=== PATIENT | male | born 1950 | race Caucasian/White ===

== ENCOUNTER 2016-12-03 07:12 | Inpatient (IN) | payer OTHER, BC ==
[2016-11-19 08:13] VITALS: BMI 32.0
--- NOTE | 2016-11-19 08:53 | PAT Medication Instructions ---
Service Date Nov 19, 2016. Current Home Medication List Atorvastatin (Lipitor), 10 MG PO QAM Budesonide/Formoterol Fumarate (Symbicort 160/4.5 Inhaler ), 2 PUFFS INH BID Cholecalciferol (Vitamin D3), 1 TAB PO QAM Cholestyramine (Cholestyramine Light), 1 PKT PO QAM Glucosamine Sulfate (Glucosamine), 1,000 MG PO QAM Losartan Potassium (Cozaar), 100 MG PO QAM Multivitamin (Multivitamin), 1 TAB PO QAM Omeprazole (Prilosec), 20 MG PO QAM Medication Instructions For Your Scheduled Surgery - Hold the following medications 2 weeks prior to surgery: Glucosamine Sulfate (Glucosamine), 1,000 MG PO QAM - Hold the following medications the morning of surgery: Multivitamin (Multivitamin), 1 TAB PO QAM Cholecalciferol (Vitamin D3), 1 TAB PO QAM Losartan Potassium (Cozaar), 100 MG PO QAM Cholestyramine (Cholestyramine Light), 1 PKT PO QAM - Take the following medications the morning of surgery with a sip of water OTHERWISE NOTHING TO EAT OR DRINK AFTER MIDNIGHT: Budesonide/Formoterol Fumarate (Symbicort 160/4.5 Inhaler ), 2 PUFFS INH BID Atorvastatin (Lipitor), 10 MG PO QAM Omeprazole (Prilosec), 20 MG PO QAM - Take the following medications as scheduled the night before surgery: Budesonide/Formoterol Fumarate (Symbicort 160/4.5 Inhaler ), 2 PUFFS INH BID If you have any questions please call us at [phone] (Diana Hawkins PA-C ) or [phone] or [phone]
--- NOTE | 2016-11-19 09:24 | DIAGNOSTIC IMAGING REPORT ---
CHEST PREADMISSION(PA/LAT) HISTORY: Preop. COMPARISON: None. FINDINGS: The lungs are clear. Cardiac silhouette is normal in size. No pleural effusions. No pneumothorax. Small nodular density within the left lateral lung base is consistent with a nipple shadow. IMPRESSION: No acute process. Electronically signed by: Grady Cortez M.D. 11/19/2016 9:22 AM Dictated Date/Time: 11/19/2016 9:15 AM
[2016-11-19 09:44] LABS: BASO % 0.9 %; BASO ABS # 0.08 K/uL (0-0.2); COMPLETE YES; EOS % 0.7 %; HEMATOCRIT 46.5 % (42-52); IG% 0.2 %; LYMPH % 16.4 %; LYMPH ABS # 1.44 K/uL (1.2-3.4); MEAN CELL VOLUME 94.1 fL (80-100); MEAN CORPUSCULAR HEMOGLOBIN 32.8 pg (25-34); MEAN CORPUSCULAR HGB CONC 34.8 g/dl (32-36); MEAN PLATELET VOLUME 10.2 fL (7.4-10.4); MONO % 8.1 %; NEUT % 73.7 %; PLATELET COUNT 283 K/uL (130-400); RED BLOOD COUNT 4.94 M/uL (4.7-6.1); WHITE BLOOD COUNT 8.76 K/uL (4.8-10.8)
[2016-11-19 09:57] LABS: URINE APPEARANCE CLEAR (CLEAR); URINE BILIRUBIN NEG (NEG); URINE COLOR YELLOW; URINE NITRITE NEG (NEG); URINE PH 5.5 (4.5-7.5); URINE SPECIFIC GRAVITY 1.018 (1.000-1.030); UROBILINOGEN NEG (NEG)
[2016-11-19 10:03] LABS: MANUAL MICROSCOPIC REQUIRED? NO; REVIEW REQ? NO
[2016-11-19 11:11] LABS: CALCIUM 9.3 mg/dl (8.5-10.1); CREATININE 1.1 mg/dl (0.60-1.40); POTASSIUM 4.4 mmol/L (3.5-5.1)
--- NOTE | 2016-12-01 12:30 | HISTORY & PHYSICAL EXAMINATION ---
DATE OF ADMISSION: 12/03/2016 HISTORY OF PRESENT ILLNESS: The patient presents to our office with complaint of back and bilateral leg pain. He was referred to pain management, but does not believe the injections would help. He is not having weakness, paresthesias, numbness. He feels his leg is fatigued and tired. Denies bowel or bladder dysfunction. PAST MEDICAL HISTORY: Significant for GERD, hypertension. PAST SURGICAL HISTORY: Significant for left total hip replacement, kidney stones, right shoulder arthroscopy, left shoulder arthroscopy. ALLERGIES: MORPHINE. MEDICATIONS: Include Losartan 50 mg daily, Crestor 5 mg daily, Prilosec 20 mg daily, glucosamine sulfate 1000 mg daily, vitamin D3 1000 international units daily, multivitamin and cholestyramine 4 grams. SOCIAL HISTORY: Works as a gear cutting machine set up operator. Occasional tobacco user. Alcohol none. REVIEW OF SYSTEMS: Significant for back and leg pain. FAMILY HISTORY: Noncontributory. PHYSICAL EXAMINATION: HEENT: Speech appropriate. CARDIOPULMONARY: No gross abnormalities. ABDOMEN: Soft, nontender. GENITOURINARY: Deferred. NEUROLOGIC: Cranial nerves II through XII grossly intact. MUSCULOSKELETAL: Moves easily around the room. Strength is intact about extremities. No focal atrophy. Gait is stable. ASSESSMENT: Grade 2 spondylolisthesis of L4 on L5, spinal stenosis L4-L5. PLAN: At this point in time, wants to pursue surgical intervention. Surgery would require lumbar decompression with instrumented fusion of L4-L5. Risks, benefits, pros, cons, and alternatives were outlined in detail. The patient would like to proceed with above-mentioned surgical planning.
[~2016-12-03] VITALS: Ht 177.8 cm; Wt 100.9 kg
[2016-12-03] VITALS (9 sets, daily range): BP systolic 110–161; BP diastolic 60–92; PULSE 66–79; TEMP 36.7–37.1; O2SAT 95–98; Ht 177.8 cm; Wt 100.9 kg
[~2016-12-03 07:12] MED LIST: ATOR10TA88 PO; CEFAZOLIN 2000 MG/60 ML D5W IV SCH; CHOL1000 PO; GLUC10007 PO; LACTATED RINGER'S 1000ML 1,000 ML IV SCH; LOSA1TAB38 PO; MULT-506 PO; PRLSR20 PO; QSTP PO; SYMIN160 INH
--- NOTE | 2016-12-03 07:28 | History & Physical Bridge Note ---
H&P Re-Evaluation Bridge Note: I have examined the patient, reviewed the History & Physical and in the interval since the performance of the History & Physical I have noted the following changes of clinical significance: No changes noted
[2016-12-03] MEDS ORDERED: albuterol inhaler INH (07:47)
[2016-12-03] MEDS ORDERED: FENTANYL CITRATE INJ 50 MCG/1 ML 2 ML VIAL ONE ×2 (09:42→11:19)
[2016-12-03] MEDS ORDERED: ONDANSETRON INJ 2 MG/ML 2 ML VIAL ONE (09:42)
[2016-12-03] MEDS ORDERED: PROPOFOL IV EMULSION 10 MG/ML 20 ML VIAL IV ONE (09:42)
[2016-12-03] MEDS ORDERED: LIDOCAINE HCL 2% 2 ML VIAL (20MG/ML) ONE (09:42)
[2016-12-03] MEDS ORDERED: MIDAZOLAM HCL 1 MG/ML 2ML VIAL ONE (09:42)
[2016-12-03] MEDS ORDERED: NEOSTIGMINE METHYLSULFATE 5 MG/5 ML SYR ONE ×2 (09:42→10:58)
[2016-12-03] MEDS ORDERED: GLYCOPYRROLATE INJ 0.2 MG/ML VIAL ONE ×2 (09:42→10:58)
[2016-12-03] MEDS ORDERED: DEXAMETHASONE SOD INJ 4 MG/ML VIAL ONE (09:42)
[2016-12-03] MEDS ORDERED: ROCURONIUM BROMIDE 10 MG/ML 5 ML VIAL ONE ×2 (09:42→10:32)
[2016-12-03] MEDS ORDERED: ONDANSETRON INJ 2 MG/ML 2 ML VIAL IV PRN ×2 (09:45→11:45)
[2016-12-03] MEDS ORDERED: ATROPINE SULFATE 0.1 MG/ML 5ML SYR IV PRN (09:45)
[2016-12-03] MEDS ORDERED: HYDROmorphone INJ 1 MG/ML SYR IV PRN ×2 (09:45→11:45)
[2016-12-03] MEDS ORDERED: EpHEDrine SULFATE INJ 50 MG/ML AMP IV PRN (09:45)
[2016-12-03] MEDS ORDERED: FENTANYL CITRATE INJ 50 MCG/1 ML 2 ML VIAL IV PRN (09:45)
[2016-12-03] MEDS ORDERED: HYDROmorphone INJ 2 MG/ML SYR/VIAL ONE (10:12)
[2016-12-03] MEDS ORDERED: THROMBIN 20,000 UNITS (RECOMBINANT) TOP ONE (10:54)
[2016-12-03] MEDS ORDERED: BACITRACIN 50000 UNIT VIAL IR ONE (11:30)
[2016-12-03] MEDS ORDERED: BUPIVACAINE/EPINEPHRINE 0.5% MPF 1:200,000 30 ML VIAL INJ ONE (11:30)
[2016-12-03] MEDS ORDERED: FLOSEAL HEMOSTATIC MATRIX 10ML TOP ONE (11:30)
[2016-12-03] MEDS ORDERED: SODIUM CHLORIDE 0.9% 1000ML 1,000 ML IV SCH (11:37)
--- NOTE | 2016-12-03 11:37 | [facility] Post Operative Brief Note ---
Immediate Operative Summary Operative Date Dec 03, 2016. Pre-Operative Diagnosis Grade 2 spondylolisthesis of L4 on L5, spinal stenosis L4-L5 Post-Operative Diagnosis Grade 2 spondylolisthesis of L4 on L5, spinal stenosis L4-L5 Procedure(s) Performed L4-L5 Lumbar Laminectomy, Decompression, Pedicle Screw Fixation, Placement of Interbody Device, L4-5 Posterolateral Fusion Application of Micheline, Bone Morphogenetic Protein Surgeon Dr. Kevan Rodrigues Continuous Yarn Dyeing Machine Operator Surgeon(s) Rani Hui PA-C Estimated Blood Loss 120mL Findings stenosis Specimens none per surgeon
[2016-12-03] MEDS ORDERED: METOCLOPRAMIDE HCL INJ 5 MG/ML 2 ML VIAL IV PRN (11:45)
[2016-12-03] MEDS ORDERED: LORAZEPAM 0.5 MG TAB PO PRN (11:45)
[2016-12-03] MEDS ORDERED: SOD PHOSPHATE/SOD BIPHOSPHATE ENEMA 132 ML BTL PR PRN (11:45)
[2016-12-03] MEDS ORDERED: ALUMINUM/MAGNESIUM SUSP 30 ML UDC PO PRN (11:45)
[2016-12-03] MEDS ORDERED: ACETAMINOPHEN IV 100 ML IV PRN (11:45)
[2016-12-03] MEDS ORDERED: DO NOT ADMINISTER FLU VACCINE PRN ×3 (11:45)
[2016-12-03] MEDS ORDERED: NALOXONE HCL 0.4 MG/1 ML VIAL/CARP IV PRN ×2 (11:45)
[2016-12-03] MEDS ORDERED: ACETAMINOPHEN 500 MG TAB PO PRN (11:45)
[2016-12-03] MEDS ORDERED: DO NOT ADMINISTER PNEUMOCOCCAL VACCINE PRN ×2 (11:45)
[2016-12-03] MEDS ORDERED: hydrOXYzine HCL 25 MG TAB PO PRN (11:45)
[2016-12-03] MEDS ORDERED: MAGNESIUM HYDROXIDE SUSP 30 ML UDC PO PRN (11:45)
[2016-12-03] MEDS ORDERED: FAMOTIDINE 20 MG TAB PO PRN (11:45)
[2016-12-03] MEDS ORDERED: LORAZEPAM INJ 0.5 MG in SYRINGE 0 ML IV PRN (11:45)
[2016-12-03] MEDS ORDERED: BISACODYL 10 MG SUPP PR PRN (11:45)
[2016-12-03] MEDS ORDERED: PROMETHAZINE HCL INJ 12.5 MG in SODIUM CHLORIDE 0.9% 50ML 50 ML IV PRN (11:45)
--- NOTE | 2016-12-03 11:45 | DIAGNOSTIC IMAGING REPORT ---
LUMBAR SPINE, INTRAOPERATIVE FLUOROSCOPY HISTORY: L4-5 decompression and fusion. FLUOROSCOPY TIME: 13 seconds. FINDINGS: Intraoperative fluoroscopy was provided for the lumbar spine. 2 fluoroscopic spot images were obtained. Posterior decompression and fusion at L4-L5 with pedicle screws and rods. The hardware appears intact. IMPRESSION: Fluoroscopy provided for a L4-L5 posterior decompression and fusion. Electronically signed by: Grady Cortez M.D. 12/03/2016 11:44 AM Dictated Date/Time: 12/03/2016 11:43 AM
--- NOTE | 2016-12-03 12:12 | OPERATIVE REPORT ---
DATE OF OPERATION: 12/03/2016 PREOPERATIVE DIAGNOSES: Spinal stenosis, spondylolisthesis. POSTOPERATIVE DIAGNOSIS: Same. PROCEDURE PERFORMED: 1. Lumbar decompression, medial facetectomy, and foraminotomy L3-L4, L4-L5. 2. Posterior spinal fusion L4-5. 3. Placement of posterior instrumentation using Orthros rods and screws L4-L5. 4. Interbody fusion L4-L5. 5. Placement of PEEK cage 7 x 22 mm at L4-L5. 6. Placement of locally harvested morcellized autograft in posterior gutters. 7. Placement of Infuse collagen sponge combined with Mastergraft in the posterior gutters and Micheline bone grafting in interbody space. SURGEON: Dr. Kevan Rodrigues. TRANSFORMER MOLDER: Rani Murphy PA-C. ANESTHESIA: General. DISPOSITION: The patient awakened and taken to PACU in stable condition. HISTORY OF PATIENT'S PROBLEMS: This is a 66-year-old male that presents with the above-mentioned diagnosis. After failing an extensive course of nonoperative care, elected to undergo the above-mentioned procedure. Risks, benefits, pros, cons, and alternatives were outlined in detail preoperatively. PROCEDURE: The patient was met preoperatively, case discussed and all questions were addressed. At that point the patient was taken back to operative suite and after undergoing successful general endotracheal intubation via department of anesthesia, was placed in prone position on Scooby table atop Raphael frame. All bony prominences were padded and the eyes were inspected to ensure there was no external pressure placed upon them. At this point, the lumbar spine was prepped and draped in normal sterile fashion. Sharp dissection with the assistance of Bovie cautery was performed down to and exposing the lamina and transverse processes of 4-5. From a caudal to cephalad fashion, complete laminectomy of L4 and partial laminectomy of L3 was performed addressing severe lateral recess and foraminal stenosis, particularly on the right. Obvious pars defects appreciated. Pedicle screws were then placed in 4-5 bilaterally with assistance of fluoroscopy and appropriate size carlos provisionally placed. Through a transforaminal approach on the right, a complete discectomy of L3-L4 was performed, endplates curetted to subcortical bleeding bone and an 11 x 22 mm PEEK cage filled with Micheline bone grafting tapped into position. The rods were then locked into final position bilaterally and transverse processes of 4-5 burred to subcortical bleeding bone. Infuse collagen sponge combined with Mastergraft and locally harvested morselized autograft was placed in the posterior gutters. A 7 flat FLYNN drain was inserted. Incision was closed with 1-0 Vicryl in the fascia, 2-0 Vicryl subcutaneously, 4-0 Monocryl for final skin closure. Steri-Strips and sterile dressing placed. The patient was awakened and taken to PACU in stable condition. Due to the complex nature of the procedure, the entire surgery was performed with the operational assistance of CARMEN Lorenzo. The food and nutrition services assistant, under direct supervision, was involved in the actual performance of all aspects of the surgical procedure including hemostasis, tissue retraction and incision, instrument management, patient positioning, and wound closure. I attest to the content of the Intraoperative Record and any orders documented therein. Any exceptio ns are noted below.
[2016-12-03] MEDS: HYDROmorphone HCL 0.5MG/ML 50 ML CASSETTE IV PRN ×3 (13:37→22:58)
--- NOTE | 2016-12-03 14:10 | Anesthesiology Progress Note ---
Anesthesia Post Op Note Date & Time Dec 03, 2016 at 14:10 Vital Signs Pain Intensity: 3.0 Vital Signs Past 12 Hours Date Time Temp Pulse Resp B/P Pulse Ox O2 Delivery O2 Flow Rate FiO2 12/03/16 13:43 Nasal Cannula 4.0 12/03/16 13:35 37.1 72 16 133/77 98 Nasal Cannula 4.0 12/03/16 13:15 72 14 142/66 95 Nasal Cannula 4 12/03/16 13:00 69 14 135/62 96 Nasal Cannula 4 12/03/16 12:45 71 14 123/58 93 Nasal Cannula 4 12/03/16 12:35 70 14 136/57 93 Nasal Cannula 4 12/03/16 12:25 36.7 70 14 122/59 96 Nasal Cannula 4 12/03/16 12:15 75 14 142/72 97 Nasal Cannula 4 12/03/16 12:05 76 14 161/83 98 Mask 10 12/03/16 11:55 82 14 132/76 95 Mask 10 12/03/16 11:49 36.4 82 14 128/63 94 Mask 15 12/03/16 07:40 79 20 161/92 97 Room Air Notes Mental Status: alert / awake / arousable, participated in evaluation Pt Amnestic to Procedure: Yes Nausea / Vomiting: adequately controlled Pain: adequately controlled Airway Patency, RR, SpO2: stable & adequate BP & HR: stable & adequate Hydration State: stable & adequate Anesthetic Complications: no major complications apparent
[2016-12-03] MEDS: LACTATED RINGER'S 1000ML 1,000 ML IV SCH ×2 (14:36→19:33)
[2016-12-03] MEDS: DEXAMETHASONE INJ 6 MG in SYRINGE 0 ML IV SCH (19:03)
[2016-12-03] MEDS: CEFAZOLIN IV 2,000 MG in DEXTROSE 5% 50ML 50 ML IV SCH (19:03)
[2016-12-03] MEDS: BUDESONIDE/FORMOTEROL FUMARATE 160/4.5 60 PUFFS/INHALER INH SCH (21:16)
[2016-12-03] MEDS: DOCUSATE SODIUM/SENNA 50/8.6MG TAB PO SCH (21:18)
[2016-12-04] VITALS (7 sets, daily range): BP systolic 117–167; BP diastolic 64–81; PULSE 63–77; TEMP 36.7–37.1; O2SAT 92–97
[2016-12-04] MEDS: LACTATED RINGER'S 1000ML 1,000 ML IV SCH (01:19)
[2016-12-04] MEDS: CEFAZOLIN IV 2,000 MG in DEXTROSE 5% 50ML 50 ML IV SCH (01:51)
[2016-12-04] MEDS: DEXAMETHASONE INJ 6 MG in SYRINGE 0 ML IV SCH ×2 (01:51→10:18)
[2016-12-04] MEDS ORDERED: DC PCA ONE (06:00)
[2016-12-04] MEDS ORDERED: OXYCODONE HCL IR 5 MG TAB (IMMEDIATE RELEASE) PO PRN (06:00)
[2016-12-04 06:57] LABS: BASO ABS # 0.01 K/uL (0-0.2); COMPLETE YES; IG% 0.3 %; LYMPH % 4.8 %; LYMPH ABS # 1.03 K/uL (1.2-3.4); MEAN CELL VOLUME 93.1 fL (80-100); MEAN CORPUSCULAR HEMOGLOBIN 31.5 pg (25-34); MEAN CORPUSCULAR HGB CONC 33.8 g/dl (32-36); NEUT % 89.9 %; PLATELET COUNT 247 K/uL (130-400); RED BLOOD COUNT 4.51 M/uL (4.7-6.1); WHITE BLOOD COUNT 21.47 K/uL (4.8-10.8)
[2016-12-04 07:30] LABS: BUN/CREATININE RATIO 15.5 (10-20); CALCIUM 8.7 mg/dl (8.5-10.1); CREATININE 1.1 mg/dl (0.60-1.40); POTASSIUM 4.3 mmol/L (3.5-5.1)
[2016-12-04] MEDS ORDERED: RXC5 PO (08:20)
--- NOTE | 2016-12-04 08:23 | Discharge Instructions ---
Discharge Instructions Admission Reason for Admission: Lumbar Spinal Stenosis Discharge Discharge Diagnosis / Problem: stenosis Discharge Goals Goal(s): Improve function Activity Recommendations Activity Limitations: per Instructions/Follow-up section . Instructions / Follow-Up Instructions / Follow-Up ACTIVITY RECOMMENDATIONS: SELF CARE INSTRUCTIONS AFTER THORACIC/LUMBAR FUSIONS 1. You may walk to your tolerance. It is good exercise for your legs and back. Expect some back and intermittent leg aches and pains. 2. You may perform "counter-top" level activities (make a sandwich, lizeth with a project, etc.). 3. No bending or lifting of more than 10 pounds or back twisting of any nature (roll like a log when turning in bed). 4. You may ride in a car for 20-30 minutes at a time. No driving until after your first visit with your doctor. 5. Frequent changes of position and restricting sitting to 30 minutes at a time will help limit the amount of back spasms and stiffness you may experience. 6. You may discontinue the use of ambulatory aids (cane, crutches, etc.) once your strength and confidence allow. 7. You may spring intern the shower and let water strike your incision when you arrive home at least once daily. Do not take a tub bath, sit in a hot tub or go into a swimming pool until after your first recheck in the office. SPECIAL CARE INSTRUCTIONS: VERY IMPORTANT TO READ AND REVIEW A. Your surgical incision has been closed with a cosmetic suture under the skin that will dissolve in about 6 weeks. In 14 days, you can use a pair of clean scissors and cut the suture that is left outside of the skin at the ends of your incision. 1. The small skin tapes can be removed 7 days after surgery if they have not fallen off by that point. 2. You may keep the wound open to air as much as possible to promote healing after post-op day number 5 unless told otherwise by your doctor. 3. If you think the wound looks like it is becoming infected (redness or worsening drainage) and/or you are experiencing fever, chill or worsening back pain and muscle spasms, contact the office so that we may evaluate you as soon as possible. B. Complications are uncommon, but please contact us if you have any signs or symptoms of: 1. wound infection (fever higher than 102.5 degrees F, redness, separation of wound, drainage, or increasing pain from the incision) 2. blood clots in legs (pain, swelling, redness and warmth in legs) 3. urinary tract infection (fever higher than 102.5 degrees F, burning upon urination or increased frequency of urination) 4. nerve problems (inability to walk on your toes or heels, numbness, loss of bowel or bladder control) 5. any other symptoms that concern you C. Please call the office at if you have any concerns or questions about your operation or recovery. D. No smoking! Smoking drastically decreases the chance of a solid fusion. E. Do not take any anti-inflammatory medications (Indocin, Advil, Motrin, Aspirin, Naprosyn, etc.) as these may inhibit the chance of a solid fusion. Tylenol is okay to take for pain. MANAGING PAIN AFTER SPINAL SURGERY 1. Narcotic medication is intended for short-term use and will be provided for surgical pain. Surgical pain usually lasts for a period of 4-6 weeks. Narcotic medication includes Percocet, Vicodin, Darvocet, Tylenol #3 or Lortab. 2. Longer-term pain is more appropriately treated with non-narcotic medication such as Tylenol ES. 3. Muscle spasm is not appropriately treated with narcotics. Muscle relaxers such as Soma, Flexeril or Skelaxin can be used along with Tylenol ES. 4. Remember that we all live with some "aches and pains". This is not unusual or uncommon after an injury or as we get older. a. Back pain is expected and may include muscle spasms for 4 to 6 weeks after surgery. The pain should gradually improve. If the pain worsens for no apparent reason, please contact the office. b. Intermittent leg pain may also be experienced and should not be concerned about unless it worsens for no apparent reason. If so, please contact the office. 5. We will provide appropriate medication within the normal guidelines of their prescribed use. We will also be very cautious and aware of potential abuse and extended duration of patients' medication needs. a. Pain medications are for your comfort and to assist with sleep and rest so that the tissue can heal. They are not provided in order to return to normal activity and should not be used through the day. To do so or worsening pain at night can result from ongoing tissue damage and development of tolerance to the prescribed medicine. 6. Please allow 2-3 days to process refills. Prescriptions will not be mailed but must be picked up at the office. FOLLOW UP VISIT: Keep your scheduled follow-up appointment. Any questions, please call the office at . Current Hospital Diet Patient's current hospital diet: Regular Diet Discharge Diet Recommended Diet: Regular Diet Procedures Procedures Performed: L4-L5 Lumbar Laminectomy, Decompression, Pedicle Screw Fixation, Placement of Interbody Device, L4-5 Posterolateral Fusion Application of Micheline, Bone Morphogenetic Protein Pending Studies Studies pending at discharge: no Medical Emergencies . Who to Call and When: Medical Emergencies: If at any time you feel your situation is an emergency, please call 911 immediately. . Non-Emergent Contact Non-Emergency issues call your: Primary Care Provider . "Provider Documentation" section prepared by Kevan Rodrigues. VTE Core Measure Inpt VTE Proph given/why not?: Kieran Solano, SCD's
[2016-12-04] MEDS: PANTOprazole SOD 40 MG TAB PO SCH (08:26)
[2016-12-04] MEDS: BUDESONIDE/FORMOTEROL FUMARATE 160/4.5 60 PUFFS/INHALER INH SCH ×2 (08:26→20:59)
[2016-12-04] MEDS: ATORVASTATIN 10 MG TAB PO SCH (08:27)
[2016-12-04] MEDS: LOSARTAN POTASSIUM 50 MG TAB PO SCH (08:29)
--- NOTE | 2016-12-04 08:46 | Anesthesiology Progress Note ---
Anesthesia Post Op Note Date & Time Dec 04, 2016 at 08:45 Vital Signs Pain Intensity: 0.0 Vital Signs Past 12 Hours Date Time Temp Pulse Resp B/P Pulse Ox O2 Delivery O2 Flow Rate FiO2 12/04/16 08:28 75 146/71 12/04/16 07:08 36.7 63 16 149/72 93 Room Air 12/04/16 03:33 37.1 77 18 167/81 97 Nasal Cannula 3.0 12/04/16 00:12 97 Nasal Cannula 4.0 12/03/16 23:16 37.0 66 18 149/72 98 Nasal Cannula 2.0 12/03/16 21:19 Nasal Cannula 4.0 Notes Mental Status: alert / awake / arousable, participated in evaluation Pt Amnestic to Procedure: Yes Nausea / Vomiting: adequately controlled Pain: adequately controlled Airway Patency, RR, SpO2: stable & adequate BP & HR: stable & adequate Hydration State: stable & adequate Anesthetic Complications: no major complications apparent
[2016-12-04] MEDS ORDERED: NURSING VERBAL MED ORDER ONE (09:15)
--- NOTE | 2016-12-04 14:39 | PROGRESS NOTE ---
DATE: 12/04/2016 Postop day 1. Back pain controlled. Leg pain improved. Vital signs stable. T-max 37.1. FLYNN drained 75 mL. Hematocrit this a.m. is 42.0. PHYSICAL EXAMINATION: The patient has good strength to testing. Appears comfortable. ASSESSMENT: Status post lumbar decompression and fusion. PLAN: At this time, we will continue with physical therapy, advance his bowel regimen and anticipate home latter half of this weekend.
[2016-12-04] MEDS: DOCUSATE SODIUM/SENNA 50/8.6MG TAB PO SCH (20:59)
[2016-12-05] MEDS ORDERED: POLYETHYLENE (MIRALAX) 17 GM PACK PO SCH (06:00)
[2016-12-05 06:06] VITALS: BP 137/72; PULSE 70; TEMP 36.7; O2SAT 94
[2016-12-05] MEDS: PANTOprazole SOD 40 MG TAB PO SCH (06:31)
[2016-12-05] MEDS: BUDESONIDE/FORMOTEROL FUMARATE 160/4.5 60 PUFFS/INHALER INH SCH (07:34)
[2016-12-05] MEDS: ATORVASTATIN 10 MG TAB PO SCH (07:35)
[2016-12-05 07:36] VITALS: BP 149/78; PULSE 74
[2016-12-05] MEDS: LOSARTAN POTASSIUM 50 MG TAB PO SCH (07:38)
[2016-12-05 07:45] VITALS: O2SAT 94
[2016-12-05] MEDS ORDERED: NURSING VERBAL MED ORDER ONE (07:45)
--- NOTE | 2016-12-05 11:39 | DISCHARGE SUMMARY ---
DATE OF DISCHARGE: 12/05/2016. PRINCIPAL DIAGNOSES: Spinal stenosis, spondylolisthesis. HOSPITAL COURSE FOLLOWS: On 12/03/2016 patient underwent lumbar decompression and fusion, tolerated this well and taken to the orthopedic floor postoperatively. Postop day #1, he was up and ambulatory. Leg pain improved. Postop day #2 FLYNN drain decreased appropriately. Leg pain markedly improved. Pain well controlled. Subsequently discharged home. Discharge orders and instructions can be found on the chart for further review.
[2016-12-05 11:52] VITALS: BP 149/78; PULSE 74; TEMP 36.7; O2SAT 94
== END 2016-12-05 13:38 | disposition home or self-care (01) | DRG 460 ==
LOC: ENRESERVDT → ENRESERVTM → C.ACU 07:12 → C.3E 09:50
PROVIDERS: ADMIT Orthopaedic Surgery Orthopaedic Surgery of the Spine; ATTEND Orthopaedic Surgery Orthopaedic Surgery of the Spine
PROC: 0SG00A1 (ICD-10-PCS; principal; 2016-12-03 09:00)
DX: M48.06 Spinal stenosis, lumbar region (principal); M43.16 Spondylolisthesis, lumbar region; K21.9 Gastro-esophageal reflux disease without esophagitis; Z96.642 Presence of left artificial hip joint; I10 Essential (primary) hypertension; F17.200 Nicotine dependence, unspecified, uncomplicated